=== PATIENT | male | born 1975 | race Hispanic/Latino ===

== ENCOUNTER 2016-11-26 15:42 | Emergency (ER) | payer OTHER ==
[~2016-11-26] VITALS: Ht 177.8 cm; Wt 72.0 kg
[~2016-11-26 15:42] MED LIST: BUSPAR10 MG PO; DILANTIN100 MG PO; GLUCOPHAGE1000 MG PO; HYDROCODON-ACE1 EAC7 PO; METFORMIN HCL500 MG PO; MOBIC15 MG PO; MOTRIN800 MG PO; NOHOMEMEDS; PHENYTEK300 MG PO; SUBOXONE 8 MG-1 EAC2 SL; ZOFRAN ODT4 MG PO
[2016-11-26 18:00] VITALS: BP 143/99
== END 2016-11-26 18:20 | disposition home or self-care (01) ==
LOC: EME → EDBD 15:42 → EME 16:42
DX: Z04.6 Encounter for general psychiatric examination, requested by authority (principal); F32.9 Major depressive disorder, single episode, unspecified; F41.1 Generalized anxiety disorder; F12.20 Cannabis dependence, uncomplicated; E11.9 Type 2 diabetes mellitus without complications; F17.200 Nicotine dependence, unspecified, uncomplicated
CPT/HCPCS: 90837; 99281; 99284

== ENCOUNTER 2017-08-10 22:37 | Inpatient (IN) | payer OTHER ==
[~2017-08-10] VITALS: Ht 180.3 cm; Wt 75.0 kg
[2017-08-10 23:01] LABS: HEMATOCRIT 41.6 % (38.0-50.0); MCH 27.9 PG (29.0-34.0); MCHC 33.4 G/DL (30.0-36.0); MCV 83.4 FL (86-99); PLATELET COUNT 222 K/uL (156-360); RBC DIS.WIDTH-CV 12.9 % (11.8-14.6); RBC DIS.WIDTH-SD 39.2 % (39-53); RED BLOOD COUNT 4.99 M/uL (4.00-5.50); WHITE BLOOD COUNT 12.2 K/uL (4.1-10.2)
[2017-08-10 23:09] LABS: CHLORIDE 97 mEq/L (99-109); POTASSIUM 3.4 mEq/L (3.7-5.4); SODIUM 135 mEq/L (136-147)
[2017-08-10 23:11] LABS: GLUCOSE 242 mg/dL (70-99)
[2017-08-10 23:12] LABS: ANION GAP 12 MEQ/L (2-14)
[2017-08-10 23:15] LABS: GFR ESTIMATE (CALCULATED) > 59 mL/min/
[2017-08-10 23:16] LABS: UREA NITROGEN (BUN) 12 mg/dL (9-23)
[2017-08-10 23:23] LABS: TROP-I INTERPRETATION NEGATIVE; TROPONIN-I < 0.01 ng/mL (0.0-0.30)
[2017-08-11 04:22] VITALS: BP 100/73
[2017-08-11 05:01] LABS: INFLUENZA A VIRAL ANTIGEN NEGATIVE; INFLUENZA B VIRAL ANTIGEN NEGATIVE
[2017-08-11 07:26] VITALS: BP 98/57
[2017-08-11 08:39] LABS: HEMATOCRIT 39.5 % (38.0-50.0); MCH 27.5 PG (29.0-34.0); MCHC 32.7 G/DL (30.0-36.0); MCV 84.2 FL (86-99); RBC DIS.WIDTH-CV 13.1 % (11.8-14.6); RBC DIS.WIDTH-SD 39.8 % (39-53); RED BLOOD COUNT 4.69 M/uL (4.00-5.50); WHITE BLOOD COUNT 10.3 K/uL (4.1-10.2)
[2017-08-11 09:04] LABS: ALKALINE PHOSPHATASE 104 IU/L (3-129); ANION GAP 6 MEQ/L (2-14); CHLORIDE 100 MEQ/L (99-109); GFR ESTIMATE (CALCULATED) > 59 mL/min/; GLUCOSE 173 mg/dL (70-99); LACTATE DEHYDROGENASE 171 IU/L (20-246); POTASSIUM 3.9 MEQ/L (3.7-5.4); SAMPLE HEMOLYSIS CHECK 0; SAMPLE ICTERIC CHECK 0; SAMPLE LIPEMIA CHECK 0; SODIUM 137 MEQ/L (136-147); TOTAL BILIRUBIN 0.8 MG/DL (0.0-1.0); UREA NITROGEN (BUN) 11 mg/dL (9-23)
[2017-08-11 09:06] LABS: MEAN PLAT.VOLUME 11.3 uM^3 (9.0-12.4); PLAT.SUFFICIENCY ADEQUATE; PLATELET COUNT 207 K/uL (156-360)
[2017-08-11] MEDS ORDERED: SUBOXONE 8 MG-1 EAC2 SL ×2 (09:06→09:07)
[2017-08-11 11:48] VITALS: BP 108/76
[2017-08-11 19:34] VITALS: BP 119/82
[2017-08-12 00:18] VITALS: BP 106/59
[2017-08-12 04:36] VITALS: BP 101/66
[2017-08-12 08:08] VITALS: BP 98/64
[2017-08-12 08:37] LABS: HEMATOCRIT 40.1 % (38.0-50.0); MCH 28.5 PG (29.0-34.0); MCHC 33.4 G/DL (30.0-36.0); MCV 85.1 FL (86-99); MEAN PLAT.VOLUME 11.3 uM^3 (9.0-12.4); PLATELET COUNT 206 K/uL (156-360); RBC DIS.WIDTH-SD 40.1 % (39-53); RED BLOOD COUNT 4.71 M/uL (4.00-5.50); WHITE BLOOD COUNT 8.9 K/uL (4.1-10.2)
[2017-08-12 09:06] LABS: ANION GAP 7 MEQ/L (2-14); CHLORIDE 102 MEQ/L (99-109); GFR ESTIMATE (CALCULATED) > 59 mL/min/; GLUCOSE 237 mg/dL (70-99); POTASSIUM 4.3 MEQ/L (3.7-5.4); SAMPLE HEMOLYSIS CHECK 0; SAMPLE ICTERIC CHECK 0; SAMPLE LIPEMIA CHECK 0; SODIUM 137 MEQ/L (136-147); UREA NITROGEN (BUN) 11 mg/dL (9-23)
[2017-08-12 11:19] LABS: HIV-1/2 AB/AG COMBO Nonreactive
[2017-08-12 11:38] VITALS: BP 117/71
[2017-08-12 14:20] VITALS: BP 123/76
[2017-08-12 19:58] VITALS: BP 124/75
[2017-08-13 06:08] LABS: HEMATOCRIT 37.1 % (38.0-50.0); MCH 28.1 PG (29.0-34.0); MCHC 32.9 G/DL (30.0-36.0); MCV 85.5 FL (86-99); MEAN PLAT.VOLUME 11.7 uM^3 (9.0-12.4); PLATELET COUNT 204 K/uL (156-360); RBC DIS.WIDTH-CV 12.8 % (11.8-14.6); RBC DIS.WIDTH-SD 39.8 % (39-53); RED BLOOD COUNT 4.34 M/uL (4.00-5.50); WHITE BLOOD COUNT 7.4 K/uL (4.1-10.2)
[2017-08-13 06:16] LABS: ANION GAP 6 MEQ/L (2-14); CHLORIDE 104 MEQ/L (99-109); GFR ESTIMATE (CALCULATED) > 59 mL/min/; GLUCOSE 327 mg/dL (70-99); POTASSIUM 4.7 MEQ/L (3.7-5.4); SAMPLE HEMOLYSIS CHECK 0; SAMPLE ICTERIC CHECK 0; SAMPLE LIPEMIA CHECK 0; SODIUM 140 MEQ/L (136-147); UREA NITROGEN (BUN) 15 mg/dL (9-23)
[2017-08-13 07:24] LABS: Estimated Average Glucose 272 mg/dL (70-123); HEMOGLOBIN A1c (GLYCOHEMOGLOB) 11.1 % HGB (Below 5.7)
[2017-08-13 08:00] VITALS: BP 111/72
[2017-08-13 11:03] VITALS: BP 122/74
[2017-08-13 11:43] LABS: POINT-OF-CARE METER ID UU14174216; POINT-OF-CARE USER ID ADMMNS
[2017-08-13 15:08] VITALS: BP 111/64
[2017-08-13] MEDS ORDERED: LEVAQUIN750 MG PO (15:56)
[2017-08-13] MEDS ORDERED: METFORMIN HCL500 MG PO (15:57)
[2017-08-13 19:50] VITALS: BP 126/89
[2017-08-13 21:39] LABS: METH RESISTANT S AUREUS PCR NEGATIVE (NEGATIVE)
[2017-08-13 21:40] LABS: PROBE CHECK PASS; SPECIMEN PROCESSING CONTROL PASS
[2017-08-13 21:58] LABS: POINT-OF-CARE METER ID UU13113781
[2017-08-13 23:21] VITALS: BP 117/66
[2017-08-13 23:30] LABS: QGTB-NIL 0.12 IU/mL (()); TB AG-NIL 0.12 IU/mL (())
[2017-08-14 04:55] VITALS: BP 113/68
[2017-08-14 05:57] LABS: HEMATOCRIT 36.7 % (38.0-50.0); MCH 27.5 PG (29.0-34.0); MCHC 32.2 G/DL (30.0-36.0); MCV 85.5 FL (86-99); MEAN PLAT.VOLUME 12.2 uM^3 (9.0-12.4); PLATELET COUNT 197 K/uL (156-360); RED BLOOD COUNT 4.29 M/uL (4.00-5.50); WHITE BLOOD COUNT 7.2 K/uL (4.1-10.2)
[2017-08-14 07:12] LABS: ANION GAP 7 MEQ/L (2-14); CHLORIDE 102 MEQ/L (99-109); GFR ESTIMATE (CALCULATED) > 59 mL/min/; POTASSIUM 4.5 MEQ/L (3.7-5.4); SAMPLE HEMOLYSIS CHECK 0; SAMPLE ICTERIC CHECK 0; SAMPLE LIPEMIA CHECK 0; SODIUM 138 MEQ/L (136-147); UREA NITROGEN (BUN) 19 mg/dL (9-23)
[2017-08-14 07:16] LABS: GLUCOSE 424 mg/dL (70-99)
[2017-08-14 08:22] LABS: POINT-OF-CARE METER ID UU14314088
[2017-08-14 08:35] LABS: INTERNAL CONTROL VALID? YES
[2017-08-14 09:21] VITALS: BP 151/80
[2017-08-14] MEDS ORDERED: GLUCOMETER MC (10:12)
[2017-08-14] MEDS ORDERED: INSULIN SYRING1 EA53 MC (10:13)
[2017-08-15 20:36] LABS: Neutrophil Cytoplasmic Aby Negative (Negative)
== END 2017-08-14 12:05 | disposition home or self-care (01) | DRG 194 ==
LOC: EME 22:37 → 4EAST 08-11 01:49 → EDOF 08-11 01:49 → ENRESERV 08-11 01:53 → 4EAST 08-11 03:57
PROVIDERS: Family Medicine; Hospitalist; Internal Medicine; Internal Medicine Infectious Disease; Internal Medicine Pulmonary Disease
PROC: 8E0ZXY6 Isolation (ICD-10-PCS; principal; 2017-08-11)
DX: J18.9 Pneumonia, unspecified organism (principal); J44.1 Chronic obstructive pulmonary disease with (acute) exacerbation; J44.0 Chronic obstructive pulmonary disease with (acute) lower respiratory infection; F33.9 Major depressive disorder, recurrent, unspecified; F11.20 Opioid dependence, uncomplicated; F41.9 Anxiety disorder, unspecified; F17.210 Nicotine dependence, cigarettes, uncomplicated; F12.90 Cannabis use, unspecified, uncomplicated; E11.65 Type 2 diabetes mellitus with hyperglycemia; G40.909 Epilepsy, unspecified, not intractable, without status epilepticus; Z78.9 Other specified health status; Z91.14 Patient's other noncompliance with medication regimen; Z79.84 Long term (current) use of oral hypoglycemic drugs; Z91.19 Patient's noncompliance with other medical treatment and regimen; Z79.4 Long term (current) use of insulin
CPT/HCPCS: 71020; 71275; 80048; 80053; 82948; 83036; 83605; 83615; 84484; 85027; 86021 90; 86038; 86480 90; 86703; 87040; 87116; 87206; 87449; 87502; 87641; 93005; 94640 76; 99202; 99281; 99285; J0456; J0574; J0696; J1815; J1885; J2270; J7030; J7050

== ENCOUNTER 2017-11-07 16:27 | Emergency (ER) | payer BC ==
[~2017-11-07] VITALS: Ht 180.3 cm; Wt 80.1 kg
[~2017-11-07 16:27] MED LIST changes: +GLUCOMETER MC; +INSULIN SYRING1 EA53 MC; +LEVAQUIN750 MG PO
[2017-11-07 21:02] LABS: APPEARANCE CLEAR ((CLEAR)); BILIRUBIN NEGATIVE; BLOOD NEGATIVE; COLOR YELLOW ((YELLOW)); GLUCOSE (STRIP) >=500; KETONES NEGATIVE; LEUKOCYTES NEGATIVE; NITRITE NEGATIVE; PROTEIN (STRIP) NEGATIVE; SPECIFIC GRAVITY 1.032 (1.000-1.030); UROBILINOGEN 0.2 MG/DL (0.2-1.0)
[2017-11-07] MEDS ORDERED: INDOCIN50 MG PO (21:43)
[2017-11-07] MEDS ORDERED: VENTOLIN HFA18 GM IH (21:43)
[2017-11-07] MEDS ORDERED: MUCINEX D ER T1 EACH PO (21:44)
[2017-11-07 21:58] VITALS: BP 123/91
== END 2017-11-07 22:03 | disposition home or self-care (01) ==
LOC: RME 16:27 → EME 16:27 → RME 22:03
PROVIDERS: Physician Assistant
DX: R09.1 Pleurisy (principal); J20.9 Acute bronchitis, unspecified; E86.0 Dehydration; H65.91 Unspecified nonsuppurative otitis media, right ear; E11.9 Type 2 diabetes mellitus without complications; J45.909 Unspecified asthma, uncomplicated; F32.9 Major depressive disorder, single episode, unspecified; F17.200 Nicotine dependence, unspecified, uncomplicated; Z87.442 Personal history of urinary calculi
CPT/HCPCS: 71046; 81003; 93005; 94640; 99281; 99284